=== PATIENT | female | born 1965 | race Caucasian/White ===

== ENCOUNTER → 2017-01-12 | Day surgery (SDC) | payer OTHER ==
[~2017-01-12] VITALS: Ht 165.1 cm; Wt 105.3 kg
[~2017-01-12] MED LIST: ELAVIL25 MG PO; GLUCOSAMIN-CHO1 EACH PO; LIPITOR10 M1 PO; MULTIVITAMINS1 EAC2 PO; PROTONIX40 M1 PO; PROTONIX40 MG PO; VIIBRYD40 MG PO; ZANTAC (NON-FO150 MG PO; ZESTORETIC 10-1 EACH PO; ZYRTEC10 MG PO
== END | disposition disaster alternative care site (69) ==
LOC: GPOC 01-10 15:00
PROC: 0DJ08ZZ Inspection of Upper Intestinal Tract, Via Natural or Artificial Opening Endoscopic (ICD-10-PCS; principal; 2017-01-12)
DX: K44.9 Diaphragmatic hernia without obstruction or gangrene (principal); K31.89 Other diseases of stomach and duodenum; K21.9 Gastro-esophageal reflux disease without esophagitis; Z98.51 Tubal ligation status; Z79.899 Other long term (current) drug therapy; Z98.890 Other specified postprocedural states
CPT/HCPCS: J2001; J7030